=== PATIENT | female | born 1975 | race Caucasian/White ===

== ENCOUNTER 2019-03-25 06:54 | Day surgery (SDC) | payer OTHER ==
[~2019-03-25 06:54] MED LIST: CEFAZOLIN 2 GM-D5W BAG** 2 GM/50 ML ML IV ONE; Lactated Ringers 1,000 ML IV SCH
[2019-03-25] MEDS ORDERED: Lactated Ringers 1,000 ML IV ONE (07:54)
[2019-03-25] MEDS ORDERED: DIPRIVAN 200 MG/20 ML IV ONE (08:45)
[2019-03-25] MEDS ORDERED: SUBLIMAZE 100 MCG/2 ML ONE (08:45)
[2019-03-25] MEDS ORDERED: TORAdol 30 mg Injection ONE (09:04)
[2019-03-25] MEDS ORDERED: Decadron 4 MG INJ ONE (09:04)
[2019-03-25] MEDS ORDERED: Zofran 4 MG/2 ML VIAL ONE (09:04)
[2019-03-25] MEDS ORDERED: TRANEXAMIC ACID 1000 MG/10 ML 1,000 MG in Sodium Chloride 0.9% 100 ML IVPB 100 ML IV ONE (10:00)
[2019-03-25 11:40] VITALS: O2SAT 95
[2019-03-25 11:42] VITALS: BP 112/74; PULSE 71
--- NOTE | 2019-03-26 11:09 | OP ---
SURGERY DATE/TIME: 03/25/2019 0855 PREOPERATIVE DIAGNOSIS: Abnormal uterine bleeding or dysfunctional uterine bleeding with fibroid uterus. POSTOPERATIVE DIAGNOSIS: Abnormal uterine bleeding or dysfunctional uterine bleeding with fibroid uterus with submucosal fibroid uterus. PROCEDURE: D&C with hysteroscopy and resection of submucosal fibroid. SURGEON: Jacek Levi D.O. PRECISION MACHINE OPERATOR: emissions technician. ANESTHESIA: General sedation. ESTIMATED BLOOD LOSS: Minimal. COMPLICATIONS: None. INDICATIONS: The risks, benefits, indications and alternatives of the procedure were reviewed with the patient prior to procedure. The patient understood the risk of infection, bleeding, bowel injury, bladder injury, ureteral injury and uterine perforation associated with the surgery and desires to have this surgery as a possible need to alleviate her current medical condition. DESCRIPTION OF PROCEDURE AND FINDINGS: At this point the patient is taken to the operating room, given general sedation, placed in the dorsal lithotomy position. Prepped and draped in usual sterile fashion. A weighted speculum is then placed in the patient's vagina and the anterior lip of the cervix is grasped with a single tooth tenaculum. Endocervical dilators were advanced through the endocervical canal to dilate the cervix. The uterus is sounded to approximately 10 cm. From this point a 5 mm hysteroscope was then placed through the endocervical canal where visualization of the uterine cavity appeared to be within normal limits other than her having approximately 2 x 2 cm submucosal fibroid located in the posterior region just proximal to the endocervical canal. From this point the MyoSure was then introduced through the channel of the hysteroscope and the MyoSure was used to resect the posterior fibroid without complications with minimal bleeding that was noted. After resection of the fibroid which cutting time consisted of 42 seconds, there was again minimal bleeding that was noted and there was no gross abnormalities further located within the uterine cavity. From this point the hysteroscope and MyoSure were then removed from the uterine cavity. At this point a curette is then placed into the fundus of the uterus where curettage was performed in all quadrants of the uterus retrieving a mild amount of endometrial tissue. At this point there is minimal bleeding that was noted. All instruments were then removed from the patient's vaginal region. The patient was then taken out of the lithotomy position and was taken out of anesthesia and was taken to the recovery room in stable condition. All instruments and laps were accounted for x2. The patient had a fluid deficit of 415 cc.
== END 2019-03-25 11:05 | disposition home or self-care (01) ==
LOC: SDC 06:54
PROVIDERS: ATTEND Obstetrics & Gynecology
DX: D25.9 Leiomyoma of uterus, unspecified (principal); N93.9 Abnormal uterine and vaginal bleeding, unspecified
CPT/HCPCS: 84703; J0690; J1100; J1885; J2405; J2704; J3010

== ENCOUNTER 2019-04-29 07:23 | Day surgery (SDC) | payer OTHER ==
[~2019-04-29 07:23] MED LIST changes: -CEFAZOLIN 2 GM-D5W BAG** 2 GM/50 ML ML IV ONE; +KEFZOL 1 GM/50 ML PREMIX** 1 GM/50 ML IVPB IV SCH
[2019-04-29] MEDS ORDERED: KEFZOL 1 GM/50 ML PREMIX** 1 GM/50 ML IVPB IV ONE (07:37)
[2019-04-29] MEDS ORDERED: Lactated Ringers 0 ML IV ONE (07:37)
[2019-04-29] MEDS ORDERED: Lactated Ringers 1,000 ML IV ONE (09:13)
[2019-04-29] MEDS ORDERED: DIPRIVAN 200 MG/20 ML IV ONE (09:46)
[2019-04-29] MEDS ORDERED: SUBLIMAZE 100 MCG/2 ML ONE (09:46)
[2019-04-29 11:27] VITALS: BP 119/78; PULSE 91; O2SAT 96
--- NOTE | 2019-04-30 08:45 | OP ---
SURGERY DATE/TIME: 04/29/2019 0945 PREOPERATIVE DIAGNOSES: 1) Abnormal uterine bleeding. 2) Enlarged uterus. 3) Fibroid uterus. POSTOPERATIVE DIAGNOSIS: 1) Abnormal uterine bleeding. 2) Enlarged uterus. 3) Fibroid uterus. PROCEDURE: D&C with Novasure endometrial ablation. SURGEON: Jacek Levi D.O. CATH LABORATORY TECHNICIAN: process technician. ANESTHESIA: General. ESTIMATED BLOOD LOSS: Minimal. COMPLICATIONS: None. INDICATIONS: The risks, benefits, indications and alternatives of the procedure were reviewed with the patient prior to the procedure. The patient understood the risk of infection, bleeding, bowel injury, bladder injury, ureteral injury, uterine perforation, pelvic infection and possible bleeding that may occur as a result of this procedure. However desires to have this procedure as a possible need to alleviate her current medical condition. DESCRIPTION OF PROCEDURE AND FINDINGS: At this point the patient is taken to the operating room, given general sedation, placed in dorsal lithotomy position. Prepped and draped in the usual sterile fashion. A weighted speculum is then placed in the patient's vagina and the anterior lip of the cervix is grasped with a single tooth tenaculum. Endocervical dilators were advanced to the endocervical canal as a means to dilate the cervix and at this point the uterus was sounded to approximately 7 to 8 cm. From this point a curette was then placed into the fundus of the uterus and curettage was performed in all quadrants of the uterus retrieving a mild to moderate amount of endometrial tissue. Subsequent to this the Novasure was grasped and had a length of 6.5 cm and a width 3.7 cm and at this point was placed into the fundus of the uterus, retracted approximately 1 cm and was then subsequently engaged. After engagement of the Novasure, the machine was turned on approximately 1 minute time for the ablative portion and was done so without complication. At the completion of the ablation the instrument was disengaged and the instrument was removed from the patient's uterine cavity. From this point all other instruments were then removed from the patient's vaginal region. The patient was then taken out of anesthesia and was subsequently taken to the recovery room in stable condition. All instruments and laps were accounted for x2.
== END 2019-04-29 11:15 | disposition home or self-care (01) ==
LOC: SDC 07:23
PROVIDERS: ATTEND Obstetrics & Gynecology
DX: D25.9 Leiomyoma of uterus, unspecified (principal); N85.2 Hypertrophy of uterus; N93.9 Abnormal uterine and vaginal bleeding, unspecified
CPT/HCPCS: 58563; 84703; 88305; J0690; J2704; J3010

== ENCOUNTER 2020-01-27 07:23 | Inpatient (IN) | payer OTHER ==
[~2020-01-27 07:23] MED LIST changes: +Astramorph-Pf 5 MG/10 ML ONE; +BRIDION 200MG/2ML IV ONE; +DIPRIVAN 200 MG/20 ML IV ONE; +Decadron 4 MG INJ ONE; -KEFZOL 1 GM/50 ML PREMIX** 1 GM/50 ML IVPB IV SCH; -Lactated Ringers 1,000 ML IV SCH; +SUBLIMAZE 100 MCG/2 ML ONE; +TORAdol 30 mg Injection ONE; +Versed 2 MG/2 ML Injection ONE; +Xylocaine-Mpf 2% 5 Ml Vial ONE; +Zemuron 100 MG/10 ML ONE; +Zofran 4 MG/2 ML VIAL ONE
[2020-01-27] MEDS ORDERED: CEFAZOLIN 2 GM-D5W BAG** 2 GM/50 ML ML IV SCH (09:00)
[2020-01-27 10:00] LABS: ABO TYPING O
[2020-01-27 10:01] LABS: Antibody Screen NEGATIVE (NEGATIVE); RH TYPING POSITIVE
[2020-01-27] MEDS ORDERED: PHENYLEPHRINE HCL ONE (10:08)
[2020-01-27] MEDS ORDERED: Ephedrine Sulfate 50 MG/ML ONE (10:38)
[2020-01-27] MEDS ORDERED: MARCAINE 0.5%-EPI 1:200,000 VL IJ ONE (10:52)
[2020-01-27] MEDS ORDERED: Lactated Ringers 1,000 ML IV ONE (11:21)
[2020-01-27] MEDS ORDERED: Xopenex 1.25 MG/0.5 ML UD NEBULE IH ONE (11:36)
[2020-01-27] MEDS ORDERED: Sodium Chloride 3 ML UD NEBULES IH ONE (11:37)
[2020-01-27 12:12] LABS: Appearance CLEAR (CLEAR); Bilirubin NEGATIVE (NEGATIVE); Blood MODERATE Ery/ul (0-5); Epithelial Cells RARE /HPF (FEW); Glucose NEGATIVE (NEGATIVE); Ketones NEGATIVE (NEGATIVE); Leukocyte Esterase NEGATIVE (NEGATIVE); Mucus SLIGHT /HPF (NEGATIVE); Nitrite NEGATIVE (NEGATIVE); Protein,Urine Dip NEGATIVE (Negative); Specific Gravity 1.012 (1.005-1.025); Urobilinogen NEGATIVE mg/dL (0-1)
[2020-01-27] MEDS ORDERED: Sodium Chloride 0.9% 10 ML FLUSH Syringe IJ PRN (12:45)
[2020-01-27] MEDS ORDERED: Zofran 4 MG/2 ML VIAL IV PRN ×2 (12:45→12:59)
[2020-01-27] MEDS ORDERED: DEMEROL 50 MG IV PRN (12:45)
[2020-01-27] MEDS ORDERED: CLARITIN 10 MG PO PRN (12:45)
[2020-01-27] MEDS ORDERED: HOLD NARCOTIC ANALGESICS AND SEDATIVES X24 HR MC SCH (12:45)
[2020-01-27] MEDS ORDERED: MORPHINE SULFATE 2 MG INJ IV PRN (12:45)
[2020-01-27] MEDS ORDERED: PERCOCET TABLET 5/325MG PO PRN (12:45)
[2020-01-27] MEDS ORDERED: Nubain 10 MG/ML IV PRN (12:45)
[2020-01-27] MEDS ORDERED: Narcan 0.4 MG/ML IV PRN (12:45)
[2020-01-27] MEDS: CEFAZOLIN 2 GM-D5W BAG** 2 GM/50 ML ML IV SCH ×2 (13:16→22:11)
[2020-01-27] MEDS: Lactated Ringers 1,000 ML IV SCH ×3 (13:16→22:41)
[2020-01-27] MEDS: Reglan 10 MG/2 ML IV SCH ×2 (13:17→22:13)
[2020-01-27] MEDS ORDERED: TORAdol 30 mg Injection IV PRN (13:32)
[2020-01-27] MEDS: Mylicon 80MG PO SCH ×2 (14:51→22:11)
[2020-01-27] MEDS: Sodium Chloride 0.9% 10 ML FLUSH Syringe IJ SCH ×2 (15:18→22:20)
[2020-01-27 18:46] LABS: Hematocrit 36.4 % (35-47); Hemoglobin 10.6 gm/dl (12.0-16.0); Mean Cell Volume 100.3 fl (78-100); Mean Corpuscular Hemoglobin 29.2 pg (26-32); Mean Corpuscular Hgb Concent. 29.1 g/dl (32-36); Mean Platelet Volume 9.4 fl (7.5-11.0); Platelet Count 363 K/mm3 (150-450); Red Blood Count 3.63 M/mm3 (4.1-5.4); Red Cell Distribution Width 14.8 % (11.5-14.0)
[2020-01-27] MEDS ORDERED: Colace 100 MG PO SCH (22:00)
[2020-01-27] MEDS ORDERED: Zocor 10MG PO SCH (22:00)
[2020-01-27] MEDS ORDERED: ENOXAPARIN SODIUM SQ SCH (23:00)
[2020-01-28 05:22] LABS: Hemoglobin 9.6 gm/dl (12.0-16.0); Mean Corpuscular Hemoglobin 29.1 pg (26-32); Mean Corpuscular Hgb Concent. 29.1 g/dl (32-36); Mean Platelet Volume 9.8 fl (7.5-11.0); Platelet Count 339 K/mm3 (150-450); Red Cell Distribution Width 14.8 % (11.5-14.0); White Blood Count 15.5 K/mm3 (4.0-10.5)
[2020-01-28 05:42] LABS: ALBUMIN 3.5 g/dL (3.5-5.0); ANION GAP 10.1 MEQ/L (5-15); BILIRUBIN,TOTAL 0.3 mg/dL (0.2-1.3); Calcium 8.8 mg/dL (8.4-10.2); Creatinine 1 1.21 mg/dL (0.52-1.04); EST GLOMERULAR FILTRATION RATE 51.4 ML/MIN; Potassium 4.5 mmol/L (3.5-5.1)
[2020-01-28] MEDS: Mylicon 80MG PO SCH (06:13)
[2020-01-28] MEDS: Reglan 10 MG/2 ML IV SCH (06:13)
[2020-01-28] MEDS: Sodium Chloride 0.9% 10 ML FLUSH Syringe IJ SCH (06:16)
[2020-01-28] MEDS: Lactated Ringers 1,000 ML IV SCH (07:45)
--- NOTE | 2020-01-28 09:29 | OP ---
SURGERY DATE/TIME: 01/27/2020 0951 PREOPERATIVE DIAGNOSIS: Symptomatic fibroid uterus approximately 12 weeks size. POSTOPERATIVE DIAGNOSIS: Symptomatic fibroid uterus approximately 12 weeks size. PROCEDURE: Laparotomy, supracervical hysterectomy, bilateral salpingectomy. SURGEON: Jacek Levi D.O. DATA ANALYTICS SPECIALIST: Esperanza Packer, surgical elastic knitter hand frame. ANESTHESIA: General. ESTIMATED BLOOD LOSS: 500 cc. COMPLICATIONS: None. INDICATIONS: The risks, benefits, indications and alternatives of the procedure were reviewed with the patient prior to procedure. The patient understood the risk of infection, bleeding, bowel injury, bladder injury, ureteral injury, incisional hernia, pelvic infection, thrombophilia disorder that may be associated with the surgery. However desires to have this procedure as a possible need to alleviate her current medical condition. DESCRIPTION OF PROCEDURE AND FINDINGS: At this point the patient is taken to the operating room, given general sedation, placed in supine position where she was, prepped and draped in the usual sterile fashion. A Pfannenstiel incision was made approximately 2 cm above the symphysis pubis and extended sharply to the rectus fascia. The fascia was then incised bilaterally with curved Eisenberg scissors and the muscles of the anterior abdominal wall were in the midline by sharp and blunt dissection. The peritoneum was then grasped between two pickups elevated and entered sharply with Metzenbaum scissors. The pelvis is then examined and noted to have approximately 12 week size uterus. An O'Jan-O'Whitt retractor was placed into the incision and the bowel packed away with moist laparotomy sponges. Tenaculum was then placed along the fundus of the uterus and used for elevation of the uterus. At this point LigaSure was then used where it was clamped over the utero-ovarian ligament on its left side where it was clamped, coagulated and cut and taken down to the round ligament towards the uterine vessel on the left side where the uterine vasculature was skeletonized and LigaSure was placed on two contiguous regions where it was coagulated and cut and a bladder flap was developed on its side. The same procedure was performed on the right side where the right utero-ovarian ligament was clamped, coagulated and cut and taken down to the round ligament where the uterine vasculature where it was skeletonized and reassured two contiguous regions were clamped, coagulated and cut and a bladder flap developed on its side. From this point the Bovie was then used to amputate the uterus from its cervical stump region and was done so without complication. After removal of the uterus the cervical stump region was closed in continuous fashion using 0 Vicryl suture in two layers. From this point the pelvis was then irrigated copiously with warm normal saline. The right and left fallopian tubes were excised with LigaSure and was done so without complication. The ovaries remained intact with no abnormalities located on their surfaces. From this point all laps, sponge and instruments were removed from the abdomen. The fascia was closed with running 0 Vicryl suture and hemostasis assured. The muscles were closed with 2-0 chromic suture. The subcutaneous layer was closed with 2-0 Vicryl suture. The skin was closed with Insorb with subsequent Dermabond. Sponge, Sponge, lap, needle and instrument counts were correct x2. The patient was then taken to the recovery room in stable condition.
[2020-01-28] MEDS ORDERED: NON-FORMULARY ITEM (Iron [Iron] 65 MG) PO SCH (10:00)
[2020-01-28] MEDS ORDERED: Zocor 10MG PO SCH (10:00)
[2020-01-28] MEDS ORDERED: FEOSOL 325 MG PO SCH (10:00)
--- NOTE | 2020-01-28 10:31 | XRAY ---
Indication: Evaluate system following partial hysterectomy one day earlier. Multiple contiguous axial images obtained through the abdomen and pelvis prior to and following 80 cc Isovue 370 contrast. Comparison: None Lung bases demonstrates moderate subsegmental atelectasis. Heart is not enlarged. Noncontrasted images demonstrates right pelvic floor phlebolith and tiny right internal iliac artery calcification. No other visceral calcifications/calculi. Noncontrasted stomach and bowel loops appear nonobstructed. Normal appendix. Posada balloon tip catheter is in the urinary bladder lumen. There has been partial hysterectomy with small pelvic fluid and tiny free air presumed postoperative. Additional lower anterior abdominal wall postoperative changes without walled off fluid collection. Postcontrast images demonstrates normal visceral enhancement. Left kidney demonstrates normal enhancement and excretion. Right kidney appears edematous with moderate hydronephrosis, small perinephric fluid, and delayed excretion favoring high-grade obstruction. Right ureter is prominent up to 7-8 mm to the level of the right ovary. Distal right ureter and ureteral vesicle junction is not opacified or distended. Suspect distal right ureter high-grade obstruction at the level of the right ovary. Incidental hepatomegaly measuring 20.5 cm. Remaining liver, gallbladder, pancreas, spleen, adrenal glands, left kidney, left ureter, bladder, and aorta appear unremarkable. No pathologic retroperitoneal lymphadenopathy. Osseous structures intact with partially visualized right femur intramedullary nanette. Impression: 1. Distal right ureter high-grade obstruction as detailed. Negative for renal/ureteral calculus or evidence for ureteral perforation. 2. Status post partial hysterectomy with postoperative changes including small pelvic free fluid and free air. 3. Bibasilar subsegmental atelectasis. Comment: Study was reviewed with the ordering clinician at 1000 hrs on January 28, 2020.
[2020-01-28 11:03] VITALS: BP 113/55; PULSE 62; O2SAT 92
== END 2020-01-28 11:44 | disposition short-term general hospital (02) | DRG 743 ==
LOC: MED SURG 07:52
PROVIDERS: ADMIT Obstetrics & Gynecology; ATTEND Obstetrics & Gynecology
PROC: 0UT90ZL Resection of Uterus, Supracervical, Open Approach (ICD-10-PCS; principal; 2020-01-27)
PROC: 0UT70ZZ Resection of Bilateral Fallopian Tubes, Open Approach (ICD-10-PCS; 2020-01-27)
DX: D25.9 Leiomyoma of uterus, unspecified (principal); N13.5 Crossing vessel and stricture of ureter without hydronephrosis; Z79.899 Other long term (current) drug therapy
CPT/HCPCS: 36415; 62322; 64488; 74177; 76942; 80053; 81001; 84703; 85027; 86850; 86900; 86901; 87086; 94640; 94760; J0690; J1100; J1650; J1885; J2250; J2274; J2370; J2405; J2704; J3010; A9270-GY